=== PATIENT | female | born 1955 | race Caucasian/White ===

== ENCOUNTER 2022-04-22 06:33 | Observation (INO) ==
--- NOTE | 2022-03-26 13:09 | PAT Medication Instructions ---
Medication Instructions Date of Service March 26, 2022 Home Medications acetaminophen 325 mg tablet (Tylenol) 325 mg PO QID PRN ibuprofen 200 mg tablet 200 mg PO Q6H PRN albuterol sulfate 2.5 mg INHALATION QID PRN albuterol sulfate 90 mcg/actuation aerosol inhaler 2 puff INHALATION QID PRN amlodipine 5 mg tablet (Norvasc) 5 mg PO QPM atorvastatin 40 mg tablet 40 mg PO HS benazepril 40 mg tablet 40 mg PO DAILY bevacizumab 1.25 mg/0.05 mL intravitreal syringe 1.25 mg INTRAVITREAL MONTHLY buspirone 5 mg tablet 5 mg PO TID celecoxib 200 mg capsule (Celebrex) 200 mg PO QAM ciclopirox olamine 1 % topical cream 1 applic TOPICAL BID conjugated estrogens 0.625 mg/gram vaginal cream (Premarin) 1 applic VAGINAL QAM dicyclomine 10 mg capsule 10 mg PO QID empagliflozin 25 mg-linagliptin 5 mg tablet (Glyxambi) 1 tab PO QAM ferrous sulfate 325 mg (65 mg iron) tablet (FeroSul) 325 mg PO Q OTHER DAY fluconazole 150 mg tablet (Diflucan) 150 mg PO WK fluticasone fur. 200 mcg-umeclid 62.5 mcg-vilant 25 mcg inhalat.powder (Trelegy Ellipta) 1 inh INHALATION QAM gabapentin 100 mg tablet 200 mg PO TID insulin glargine 100 unit/mL (3 mL) subcutaneous pen (Basaglar KwikPen U-100 Insulin) 70 unit SUBCUT BID ipratropium 0.5 mg-albuterol 3 mg (2.5 mg base)/3 mL nebulization soln 3 ml INHA LATION QID PRN levothyroxine 125 mcg tablet 125 mcg PO QAM lorazepam 0.5 mg tablet 0.5 mg PO Q6H PRN metoprolol succinate 50 mg tablet,extended release 24 hr 50 mg PO QAM montelukast 10 mg tablet (Singulair) 10 mg PO PM multivitamin 2 tab PO QAM omeprazole 40 mg capsule,delayed release 40 mg PO QAM oxybutynin chloride 10 mg tablet,extended release 24 hr 10 mg PO QAM sertraline 100 mg tablet (Zoloft) 200 mg PO QAM Continue as directed fluconazole 150 mg tablet (Diflucan) 150 mg PO WK ASK your surgeon for instructions celecoxib 200 mg capsule (Celebrex) 200 mg PO QAM ibuprofen 200 mg tablet 200 mg PO Q6H PRN ASK your prescriber and surgeon bevacizumab 1.25 mg/0.05 mL intravitreal syringe 1.25 mg INTRAVITREAL MONTHLY STOP taking 24 hours before surgery ciclopirox olamine 1 % topical cream 1 applic TOPICAL BID DO NOT take the morning of surgery benazepril 40 mg tablet 40 mg PO DAILY conjugated estrogens 0.625 mg/gram vaginal cream (Premarin) 1 applic VAGINAL QAM dicyclomine 10 mg capsule 10 mg PO QID empagliflozin 25 mg-linagliptin 5 mg tablet (Glyxambi) 1 tab PO QAM ferrous sulfate 325 mg (65 mg iron) tablet (FeroSul) 325 mg PO Q OTHER DAY multivitamin 2 tab PO QAM oxybutynin chloride 10 mg tablet,extended release 24 hr 10 mg PO QAM Take morning of surgery With a small sip of water, OTHERWISE NOTHING TO EAT OR DRINK AFTER MIDNIGHT: acetaminophen 325 mg tablet (Tylenol) 325 mg PO QID PRN (okay to take up to 4 hours prior to surgery if needed) albuterol sulfate 2.5 mg INHALATION QID PRN (use if needed; please bring rescue inhaler with you to hospital day of surgery if possible) albuterol sulfate 90 mcg/actuation aerosol inhaler 2 puff INHALATION QID PRN (if needed) buspirone 5 mg tablet 5 mg PO TID fluticasone fur. 200 mcg-umeclid 62.5 mcg-vilant 25 mcg inhalat.powder (Trelegy Ellipta) 1 inh INHALATION QAM gabapentin 100 mg tablet 200 mg PO TID ipratropium 0.5 mg-albuterol 3 mg (2.5 mg base)/3 mL nebulization soln 3 ml INHALATION QID PRN (if needed) levothyroxine 125 mcg tablet 125 mcg PO QAM lorazepam 0.5 mg tablet 0.5 mg PO Q6H PRN (if needed) metoprolol succinate 50 mg tablet,extended release 24 hr 50 mg PO QAM omeprazole 40 mg capsule,delayed release 40 mg PO QAM sertraline 100 mg tablet (Zoloft) 200 mg PO QAM Take evening before surgery acetaminophen 325 mg tablet (Tylenol) 325 mg PO QID PRN (if needed) albuterol sulfate 2.5 mg INHALATION QID PRN (if needed) albuterol sulfate 90 mcg/actuation aerosol inhaler 2 puff INHALATION QID PRN (if needed) amlodipine 5 mg tablet (Norvasc) 5 mg PO QPM atorvastatin 40 mg tablet 40 mg PO HS buspirone 5 mg tablet 5 mg PO TID dicyclomine 10 mg capsule 10 mg PO QID gabapentin 100 mg tablet 200 mg PO TID insulin glargine 100 unit/mL (3 mL) subcutaneous pen (Basaglar KwikPen U-100 Insulin) 70 unit SUBCUT BID ipratropium 0.5 mg-albuterol 3 mg (2.5 mg base)/3 mL nebulization soln 3 ml INHALATION QID PRN (if needed) lorazepam 0.5 mg tablet 0.5 mg PO Q6H PRN (if needed) montelukast 10 mg tablet (Singulair) 10 mg PO PM Insulin Dependent Diabetic Patients * Test your blood sugar the morning of surgery * If Blood Sugar is GREATER THAN 150, take HALF of your regular dose of: insulin glargine 100 unit/mL (3 mL) subcutaneous pen (Basaglar KwikPen U-100 Insulin) > take 35 units * If Blood Sugar is LESS THAN 150, DO NOT TAKE ANY: insulin glargine 100 unit/mL (3 mL) subcutaneous pen (Basaglar KwikPen U-100 Insulin) Other Notes If you have any questions please call us at [phone] or [phone] or [phone] or [phone]
--- NOTE | 2022-03-27 12:59 | Anesthesiology Consultation ---
Date of Service March 27, 2022 Assessment & Plan (1) Encounter for pre-operative examination: Chart Review Chart Review: Acceptable Risk for Surgery (pending preop Covid testing results ) and Patient seen in Pre Admission Testing Pt hesitant re: SAB - discussed pros and cons of SAB vs GA- pt will discuss with anesthesiologist DOS -Discussed pulm status with Dr. Berman- pt follows routinely with PCP and sleep medicine. Takes inhalers and nebulizer as prescribed. Uses oxygen PRN with activity- pt 95% oxygen on RA in PAT office. Pt can proceed as scheduled- it was recommended that patient do nebulizer treatment prior to coming to hospital on DOS. - Check BSG AM DOS Per PAT appt on 03/27/22, patient denies any recent travel or large group activities. No known Covid positive exposures or Covid related symptoms. No known Covid infection in the past 90 days. Pt is vaccinated for Covid. Preop Covid testing scheduled 04/18/22 = will await results. Educated on importance of self quarantining, social distancing and wearing mask in public for the patient one week prior to surgery and after Covid testing done Last seen by Sleep Medicine 03/21/22= Seen as telemedicine visit. Hx of COPD, DM, depression/anxiety, HTN, tobacco use and hypothyroidism. Seen for follow up on ZAIRA and nocturnal hypoxemia. Had recent CPAP adjustments with new mask. Continue CPAP every night and for naps. Adjustments made to CPAP. Get DL 3 months after hip replacement to consider repeating overnight oximetry on RA with PAP. Follow up in six moths Pt last seen by PCP 01/02/22= Pt seen for recheck. ZAIRA- on CPAP- not wearing oxygen at night- PCP informing sleep medicine. DM- A1C 7.1. COPD- severe/history of asthma. (Had nighttime oximetry study that did show desaturation- sleep medicine made adjustments to CPAP) Teaching & Discussion Pre-Anesthesia Teaching/Discussion Notes: Instructed NPO after midnight before surgery,except medications with 15 cc of water. Medication instructions provided according to the [facility] guidelines. History Surgery Operation Date: 04/22/22 12:30 Proposed Procedures p Left Total Hip Arthroplasty - Herbert Renner MD Height/Weight Height: 5 ft 8.5 in Weight: 143.8 kg Allergies Allergy/AdvReac Type Severity Reaction Status Date / Time Sulfa (Sulfonamide Allergy Unknown Unknown Verified 03/25/22 15:33 Antibiotics) metformin AdvReac Intermediate Diarrhea Verified 03/26/22 08:24 Medications Home Medications Medication Instructions Recorded Confirmed Last Taken acetaminophen 325 mg tablet 325 mg PO QID PRN 03/25/22 03/26/22 Unknown (Tylenol) ibuprofen 200 mg tablet 200 mg PO Q6H PRN 03/25/22 03/26/22 Unknown albuterol sulfate 2.5 mg INHALATION QID PRN 03/26/22 03/26/22 Unknown albuterol sulfate 90 mcg/actuation 2 puff INHALATION QID PRN 03/26/22 03/26/22 Unknown aerosol inhaler amlodipine 5 mg tablet (Norvasc) 5 mg PO QPM 03/26/22 03/26/22 Unknown atorvastatin 40 mg tablet 40 mg PO HS 03/26/22 03/26/22 Unknown benazepril 40 mg tablet 40 mg PO DAILY 03/26/22 03/26/22 Unknown bevacizumab 1.25 mg/0.05 mL 1.25 mg INTRAVITREAL MONTHLY 03/26/22 03/26/22 Unknown intravitreal syringe buspirone 5 mg tablet 5 mg PO TID 03/26/22 03/26/22 Unknown celecoxib 200 mg capsule (Celebrex) 200 mg PO QAM 03/26/22 03/26/22 Unknown ciclopirox olamine 1 % topical 1 applic TOPICAL BID 03/26/22 03/26/22 Unknown cream conjugated estrogens 0.625 mg/gram 1 applic VAGINAL QAM 03/26/22 03/26/22 Unknown vaginal cream (Premarin) dicyclomine 10 mg capsule 10 mg PO QID 03/26/22 03/26/22 Unknown empagliflozin 25 mg-linagliptin 5 1 tab PO QAM 03/26/22 03/26/22 Unknown mg tablet (Glyxambi) ferrous sulfate 325 mg (65 mg 325 mg PO Q OTHER DAY 03/26/22 03/26/22 Unknown iron) tablet (FeroSul) fluconazole 150 mg tablet 150 mg PO WK 03/26/22 03/26/22 Unknown (Diflucan) fluticasone fur. 200 mcg-umeclid 1 inh INHALATION QAM 03/26/22 03/26/22 Unknown 62.5 mcg-vilant 25 mcg inhalat.powder (Trelegy Ellipta) gabapentin 100 mg tablet 200 mg PO TID 03/26/22 03/26/22 Unknown insulin glargine 100 unit/mL (3 70 unit SUBCUT BID 03/26/22 03/26/22 Unknown mL) subcutaneous pen (Basaglar KwikPen U-100 Insulin) ipratropium 0.5 mg-albuterol 3 mg 3 ml INHALATION QID PRN 03/26/22 03/26/22 Unknown (2.5 mg base)/3 mL nebulization soln levothyroxine 125 mcg tablet 125 mcg PO QAM 03/26/22 03/26/22 Unknown lorazepam 0.5 mg tablet 0.5 mg PO Q6H PRN 03/26/22 03/26/22 Unknown metoprolol succinate 50 mg 50 mg PO QAM 03/26/22 03/26/22 Unknown tablet,extended release 24 hr montelukast 10 mg tablet 10 mg PO PM 03/26/22 03/26/22 Unknown (Singulair) multivitamin 2 tab PO QAM 03/26/22 03/26/22 Unknown omeprazole 40 mg capsule,delayed 40 mg PO QAM 03/26/22 03/26/22 Unknown release oxybutynin chloride 10 mg 10 mg PO QAM 03/26/22 03/26/22 Unknown tablet,extended release 24 hr sertraline 100 mg tablet (Zoloft) 200 mg PO QAM 03/26/22 03/26/22 Unknown Past Medical History Medical History (Updated 03/28/22 @ 09:40 by Migdalia Alvarez PA-C) Anxiety Asthma Well controlled per patient Chronic diastolic CHF (congestive heart failure) Chronic obstructive pulmonary disease Uses inhaler daily - uses 3L oxygen if out walking - uses nebulizer once a day - follows Dr. Cece Abreu (Sleep Medicine) Chronic respiratory failure with hypoxia Depression Diabetes mellitus, type 2 IDDM Glucose stable per patient Diabetic retinopathy Follows eye doctor routinely GERD (gastroesophageal reflux disease) Well controlled and stable Hyperlipidemia Hypertension Hypothyroidism Sleep apnea cpap Spinal stenosis Lumbar area Exercise / Class Metabolic Activity III < 4 Walking/Shop/Light housework (no chest pain or SOB with flat surace, short distance ambulation ) Past Family History Family History Other No pertinent family history Past Surgical History Surgical History History of colonoscopy History of total right hip arthroplasty Hx of arthroscopy of right knee Hx of inguinal hernia surgery Hx of wisdom tooth extraction Past Anesthesia History No Hx of Anesthesia Complications and No Family Hx of Anesthesia Complications History of PONV No Hx of PONV and No Hx of Motion Sickness Social History Smoking Status: Current every day smoker tobacco type: cigarettes Smoking cigarettes per day: 5 cigarettes per day Do You Dip or Chew Tobacco: No Hx Alcohol Use: No Hx Substance Use: No substance use type: does not use Review of Systems Chronic cough- due to asthma and COPD- usually in the morning - stable. Patient denies chest pain, shortness of breath at rest, wheezing, palpitations. No hx of seizures, stroke, CA. No hx of blood clots or blood transfusions Physical Exam Vital Signs VITALS BP 126/83 P 74 TEMP 98.8 SP02 95% on RA RESP 16 Constitutional no acute distress ENMT Mouth: no TMJ clicking Thyromental Distance: > or= 3.5 Finger Breadths (3.5) Mallampati Class: II Missing side teeth and molars Capped to side tooth Neck + limited neck extension (mild) Respiratory normal respiratory effort; no respiratory distress Auscultation: lungs clear to auscultation bilaterally; no wheezes Cardiovascular Rate/Rhythm: regular rate and regular rhythm Heart Sounds: no murmur Vessels: no carotid bruit Heart sounds mildly dimished Musculoskeletal Spine: no pain with cervical ROM Extremities: extremities normal to inspection Psychiatric Orientation: alert Lab Results Anesthesia Preop Results Results Anesthesia Widget: WBC 8.67 K/uL (4.8-10.8) 03/27/22 Hgb 13.9 g/dL (12.0-16.0) 03/27/22 Hct 43.9 % (37-47) 03/27/22 Plt 237 K/uL (130-400) 03/27/22 Na 142 mmol/L (136-145) 03/27/22 K 4.7 mmol/L (3.5-5.1) 03/27/22 Cl 106 mmol/L (98-107) 03/27/22 CO2 30 mmol/L (21-32) 03/27/22 BUN 17 mg/dl (6-23) 03/27/22 Creat 0.86 mg/dl (0.6-1.2) 03/27/22 Glucose Level 130 mg/dl (70-99(Fasting)) H 03/27/22 PT 10.4 Seconds (9.0-12.0) 03/27/22 PTT 25.9 Seconds (21.0-31.0) 03/27/22 INR 1.0 (0.9-1.1) 03/27/22 HA1c 7.1 % (4.5-5.6) H 03/27/22 Blood Type A Positive 03/27/22 Antibody Screen NEGATIVE 03/27/22 Testing Electrocardiogram Date: 03/27/22 Findings: + NSR @ (70bpm ) Normal EKG per cardio. Chest X-Ray Date: 03/27/22 Findings: + NAD Echocardiogram Date: 11/29/20 EF: 55-59% LV Function: normal RWMA: + none Other Findings: + LVH (moderate/concentric ) and + diastolic dysfunction (Grade I ) Aortic valve sclerosis without stenosis. Aortic root is mildly enlarged. Proximal ascending aorta is inadequately visualized
--- NOTE | 2022-04-19 17:05 | History and Physical Report ---
CHIEF COMPLAINT: Left hip pain. HISTORY OF PRESENT ILLNESS: The patient is a 66-year-old female from [place], who presents for martinez rgical treatment of her left hip. She has a 1-2 year history of gradually increasing left hip pain a nd discomfort that resulted in having her to use a cane to get around. She describes groin pain, thi gh pain radiating down to her knee. Denies any real major back pain. She has tried multiple medicin es without any real relief. She uses topical BenGay with Aspercreme with minimal relief. Her walkin g tolerance is 2 blocks at best. She is desiring surgical treatment. She does have history of right hip replacement done in [place] in 2009 at [facility]. PAST MEDICAL HISTORY: 1. Hypertension. 2. Elevated cholesterol. 3. Asthma. 4. COPD. 5. Sleep apnea with CPAP machine. 6. Diabetes. 7. Morbid obesity. 8. Gastroesophageal reflux disease. 9. Back pain. PAST SURGICAL HISTORY: Includes total hip replacement done in [facility] in [place] on 0. ALLERGIES: SULFA. CURRENT MEDICATIONS: Include: 1. Albuterol. 2. Amlodipine. 3. Atorvastatin. 4. Benazepril. 5. Buspirone. 6. Celebrex. 7. Dicyclomine. 8. Estrogen. 9. Iron. 10. Fluticasone. 11. Gabapentin. 12. Levothyroxine. 13. Glyxambi. 14. Lorazepam. 15. Metoprolol. 16. Montelukast. 17. Omeprazole. 18. Oxybutynin. 19. O2 20. Sertraline. 21. Ellipta. SOCIAL HISTORY: A 66-year-old white female. She lives in [place]. She moved there from [facility]. FAMILY HISTORY: Noncontributory. REVIEW OF SYSTEMS: Significant for morbid obesity, BMI 48. No history of DVT or PE. No known bleed ing problems. PHYSICAL EXAMINATION: GENERAL: Shows a pleasant, obese, middle-aged female. HEENT: Benign. NECK: Supple. No lymphadenopathy. LUNGS: Clear to auscultation. HEART: Regular rate and rhythm. ABDOMEN: Soft, nontender, nondistended. EXTREMITIES: Grossly neurovascularly intact except as follows. Examination of the left leg reveals the patient walks with a markedly antalgic gait. She uses a cane . Limps in the left side. The leg lengths are pretty equal. She may be just slightly short on the left side. She has pain with any type of hip motion. Internal rotation to neutral at best. Mild di ffuse edema distally and some mild stasis changes. No skin breakdown. X-RAYS: X-rays of the left hip were reviewed. It shows advanced left hip DJD. She has complete los s of her joint space. She has got a fairly concentric disease. She got cystic change on both sides of the joint. Right hip replacement looks to be in pretty good position, but there is not much motio n of the cuff and they did penetrate the medial wall when placing it. It looks stable. ASSESSMENT: A 66-year-old white female 12 years out from right hip replacement with multiple medical comorbidities including morbid obesity, hypertension, elevated cholesterol, emphysema, chronic obstr uctive pulmonary disease, sleep apnea, diabetes, and reflux disease with advanced left hip degenerati ve joint disease. She has failed conservative treatment and would like to have her left hip replaced . PLAN: We talked about treatment. She is strongly desiring hip replacement surgery. I discussed wit h her the increased risk with her size and obesity and she is fully aware of the risks of infection, blood clots, need for revision surgery, which are higher. Other concerns include but not limited to , infection, neurological injury, vascular injury, bleeding problem, pain, limited range of sara on, stiffness, dislocation, fracture, etc. The patient understands and desires to proceed. Informed consent was obtained. We will likely use a Prevena VAC postoperatively. She will need to hold her metformin on the morning of surgery and take the metoprolol. She will take omeprazole as well. She is planning to be discha rged to home with some home therapy. Job ID: [id number]
[~2022-04-22 06:33] MED LIST: ACETAMINOPHEN 500 MG TAB PO SCH; BUPIVACAINE 0.5 % 5 MG/1 ML PF 10ML VIAL ONE; CeleBREX 200 MG CAP PO SCH; FAMOTIDINE 20 MG TAB PO SCH; LR 500ML BOLUS, THEN 15ML/HR IV SCH; LR 60ML/HR IV SCH; METOCLOPRAMIDE HCL 10 MG TABLET PO SCH; Scopolamine 1 MG TDSY TD SCH; TRANEXAMIC ACID 1,000 MG **IV Pre-op IV SCH
--- NOTE | 2022-04-22 06:57 | History & Physical Bridge Note ---
Date of Service April 22, 2022 History & Physical Bridge Note I have examined the patient, reviewed the History & Physical and in the interval since the performance of the History & Physical I have noted the following changes of clinical significance: no changes noted
[2022-04-22] MEDS ORDERED: MIDAZOLAM HCL 1 MG/ML 2ML VIAL ONE ×2 (07:31)
[2022-04-22] MEDS ORDERED: MoRPHine SULFATE PF 1 MG/ML 10 ML AMP/VIAL ONE (07:31)
[2022-04-22] MEDS ORDERED: ePHEDrine sulfate 50 MG/ML AMP IV PRN ×2 (08:02→09:08)
[2022-04-22] MEDS ORDERED: ONDANSETRON INJ 2 MG/ML 2 ML VIAL IV PRN ×3 (08:02→12:47)
[2022-04-22] MEDS ORDERED: ATROPINE SULFATE 0.1 MG/ML 10ML SYR IV PRN (08:02)
[2022-04-22] MEDS ORDERED: fentaNYL citrate 100 MCG/2 ML VIAL IV PRN (08:02)
[2022-04-22] MEDS ORDERED: MEPERIDINE HCL 25 MG/ML CARP/VIAL IV PRN (09:08)
[2022-04-22] MEDS ORDERED: LACTATED RINGER'S 500 ML IV PRN (09:08)
[2022-04-22] MEDS ORDERED: diphenhydrAMINE 50 MG/ML VIAL IV PRN (09:08)
[2022-04-22] MEDS ORDERED: HYDROmorphone INJ 0.5 MG/0.5 ML SYR IV PRN (09:08)
[2022-04-22] MEDS ORDERED: MoRPHine SULFATE 2 MG/ML CARP IV PRN (09:08)
[2022-04-22] MEDS ORDERED: NALOXONE HCL 0.4 MG/1 ML VIAL/CARP IV PRN ×2 (09:08→12:47)
[2022-04-22] MEDS ORDERED: NALBUPHINE HCL INJ 10 MG/ML AMP IV PRN (09:08)
[2022-04-22] MEDS ORDERED: NALOXONE HCL 1 MG in SODIUM CHLORIDE 0.9% 1000ML 1,000 ML IV PRN (09:08)
[2022-04-22] MEDS ORDERED: NALOXONE HCL 0.08 MG in SYRINGE 1.8 ML IV PRN (09:08)
[2022-04-22] MEDS ORDERED: MoRPHine SULFATE PF 1 MG/ML 10 ML AMP/VIAL INT SPINAL ONE (09:08)
[2022-04-22] MEDS ORDERED: NO NARCOTICS OR SEDATIVES SCH (09:15)
[2022-04-22] MEDS ORDERED: SODIUM CHLORIDE 0.9% 1000ML 1,000 ML IV SCH (09:15)
[2022-04-22] MEDS ORDERED: EPINEPHrine INJ 1 MG/ML AMP ONE (09:16)
[2022-04-22] MEDS ORDERED: BUPIVACAINE 0.5 % 5 MG/1 ML MPF 30ML VIAL ONE (09:17)
[2022-04-22] MEDS ORDERED: KETAMINE 50 MG/5 ML SYRINGE ONE (09:43)
[2022-04-22] MEDS ORDERED: PROPOFOL IV EMULSION 10 MG/ML 20 ML VIAL IV ONE ×2 (09:44→10:38)
[2022-04-22] MEDS ORDERED: GLYCOPYRROLATE 0.2 MG/ML VIAL ONE (09:49)
[2022-04-22] MEDS ORDERED: ONDANSETRON INJ 2 MG/ML 2 ML VIAL ONE (09:49)
[2022-04-22] MEDS ORDERED: KETOROLAC TROMETHAMINE 15 MG/ML VIAL IV PRN (11:00)
--- NOTE | 2022-04-22 11:38 | Operative Report ---
PG Post Operative Report Pre & Post Diagnosis Operation Date: 04/22/22 08:50 Pre-Op Diagnosis: Left Hip Advanced Degenerative Joint Disease Post-Op Diagnosis: Left Hip Advanced Degenerative Joint Disease I identified the patient and participated in the time-out.: Yes Procedure Operation Date: 04/22/22 08:50 Actual Procedures p Left Total Hip Arthroplasty--Uncemented(Left) - Herbert Renner MD Surgeon Herbert Renner MD Industrial Safety Engineer Chidi Tapia PA-C Estimated Blood Loss 200 Findings Consistent with Post-Op Diagnosis Operative findings revealed advanced left hip DJD with grade 4 [id number] disease of the femoral head and acetabulum. She remarks a joint effusion. Fairly large anterior acetabular osteophytes. Fluids 1700 cc Specimens Left femoral head sent for pathology Drains None Anesthesia Type Spinal MAC Complications none Disposition Accompanied Patient To Recovery: Yes Indications Patient is a 66-year-old female whose had a several year history of gradually progressive increased left hip pain discomfort which became more disabling over time. She had a right hip replaced about 10 years ago in [place]. She failed all conservative measures. X-rays show advanced left hip arthritis. She elected proceed with surgical management. Description of Procedure Operative implants consist of: The 1 Biomet G7 size 52 mm acetabular shell. 2. 6.5 cancellous acetabular screws 135 mm length 1 to 20 mm length. 3. [place] hole automotive generator repairer. 4. Highly cross-linked polyethylene liner with a 52 mm outer diameter, 36 mm inner diameter with a schmidt placed inferior and posterior. 5. DePuy Karaya size 11 KLA femoral stem. 6. +5/36 mm ceramic articular ball. The patient was taken the operating, identified, and placed on the operating table supine position protectors were properly padded. IV antibiotics tried by anesthesia team. A spinal anesthetic had been implemented holding area. Jasmine catheter was placed in sterile fashion. The patient was then placed in the right lateral decubitus position. Axillary roll was placed. Stulberg hip posit ioner was used for positioning. Left hip and leg were then prepped and draped in usual sterile fashion. A posterior lateral approach of the left hip was then performed through a curvilinear incision centered over the greater trochanter. Sharp dissection was carried through subcutaneous tissue down to level the IT band gluteal fascia. The subcutaneous tissue layer was quite thick. The IT band gluteal fascia incised longitudinally in line with skin incision. The underlying greater bursa was excised. The piriformis and external rotators were taken off the posterior aspect hip joint along with the posterior capsule as a single layer. Great care was taken throughout the procedure protect the sciatic nerve at all times. Hip was internally rotated and dislocated. A femoral neck osteotomy cut was made with Final Cut about 5 mm above the lesser trochanter. Femoral head was removed and sent for pathology. The femur was retracted anteriorly. Attention drawn the acetabulum. The acetabular labrum was excised. Pulmonary fat was excised. Sequential reaming the acetabular was then performed begin with a size 43 and progressing up to 51. We reamed a little bit with a 52 reamer and then placed a 52 mm Biomet G7 acetabular shell in about 40 degrees lateral opening and 20 degrees of anteversion. It was fixed with two 6.5 cancellous acetabular screws. Some large anterior osteophytes removed. A trial liner was placed. Attention drawn the femur. The proximal femur was entered with a [employer] cutter followed by canal finder. I then broached begin the size 8 and and progressing up to 11. Got excellent fit 11. We then trialed the hip and the +5 articular ball recreated soft tissue tension appropriately and was fully stable. I did elect to place a schmidt in the acetabular liner in order to maximize her stability in flexion with due to her obesity. We elect to place these implants. All trial implants were removed. An apex hole automotive generator repairer was placed. Highly cross-linked polyethylene liner was placed. The schmidt was placed inferior and posterior. A DePuy size 11 KLA femoral stem was impacted in position. +5/36 mm ceramic articular ball was placed. Hip was located once again found to be stable. Attention drawn toward closing. The wounds irrigated scope soft pulsatile lavage solution. I did inject locally with 60 cc of absent Marcaine with epinephrine. Posterior capsule and external rotators were repaired through drill holes in the posterior trochanter as a single layer with #2 Tycron suture. The IT band gluteal fascia then closed in 1 PDS suture in running fashion for subcutaneous tissues then closed with 3 layers with a deep layer #2 Vicryl suture, the middle layer #1 Vicryl suture, and the subcutaneous tissues with 2-0 Dexon suture in a buried interrupted fashion. Skin was closed skin yesy. Leg was then cleaned and dried. A Prevena VAC dressing was applied due to her very large soft tissue envelope. Patient then transferred to the recovery room in stable condition. Patient tolerated procedure well and there were no complications. Chidi Tapia, my physician human resources executive assistant, was present for the entire procedure. His assistance was essential and required for appropriate patient positioning, prepping and draping, surgical exposure, performing the technical details of the operation, placement the implants, closure of the wound, and placement of the sterile bandage. I attest to the content of the Intraoperative Record and any orders documented therein. Any exceptions are noted below.
--- NOTE | 2022-04-22 12:29 | XRay Report ---
SINGLE VIEW PELVIS; SINGLE VIEW LEFT HIP CLINICAL HISTORY: Postoperative examination. FINDINGS: 2 AP portable view of the hips and pelvis with a crosstable lateral portable view of the le ft hip are obtained. Comparison is made to study dated 03/20/2022. A bipolar left hip arthroplasty is in near-anatomic alignment. At least 2 cortical lag screws transfix the acetabular cup. No acute frac ture is identified. There are expected postoperative changes overlying the left hip including skin cl ips, subcutaneous gas, a surgical drain, and soft tissue swelling. A right hip arthroplasty is in yessenia r-anatomic alignment. IMPRESSION: Expected postoperative findings status post left hip arthroplasty. No acute fracture is s een. ACT 112: Negative or not required by law. Electronically signed by: Red Rivas M.D. 04/22/2022 12:28 PM
[2022-04-22] MEDS ORDERED: METOCLOPRAMIDE HCL INJ 5 MG/ML 2 ML VIAL IV PRN (12:47)
[2022-04-22] MEDS ORDERED: ALBUTEROL 0.083% NEBU SOLN 3 ML VIAL INH PRN (12:47)
[2022-04-22] MEDS ORDERED: ALUMINUM/MAGNESIUM SUSP 30 ML UDC PO PRN (12:47)
[2022-04-22] MEDS ORDERED: MAGNESIUM HYDROXIDE SUSP 30 ML UDC PO PRN (12:47)
[2022-04-22] MEDS ORDERED: ALBUT/IPRATROP 3MG/0.5MG NEB 3 ML VIAL INH PRN (12:47)
[2022-04-22] MEDS ORDERED: PHARMACY GLYCEMIC MGMT CONSULT PRN (12:47)
[2022-04-22] MEDS ORDERED: ALBUTEROL HFA 8 GM INHALER INH PRN (12:47)
[2022-04-22] MEDS ORDERED: BEVACIZUMAB INT VIT SCH (12:47)
[2022-04-22] MEDS ORDERED: bisacodyL 10 MG SUPP PR PRN (12:47)
[2022-04-22] MEDS ORDERED: DEXTROSE 50% 50 ML SYRINGE IV PRN (13:30)
[2022-04-22] MEDS ORDERED: GLUCOSE 40% GEL 15 GM TUBE PO PRN (13:30)
[2022-04-22] MEDS ORDERED: GLUCOSE 10 TAB/TUBE PO PRN (13:30)
[2022-04-22] MEDS ORDERED: GLUCAGON FOR INJ 1 MG VIAL IM PRN (13:30)
[2022-04-22] MEDS ORDERED: CARBOHYDRATES FOR HYPOGLYCEMIA PO PRN (13:30)
--- NOTE | 2022-04-22 13:36 | Pharmacy Report ---
Pharmacy Glycemic Short Note 2 - Date of Service April 22, 2022 - Glycemic Short BSG Results (Last 24 hours): 04/22/22 04/22/22 06:59 11:28 POC Glucose 82 94 OUTPATIENT ANTIDIABETIC REGIMEN: * Basaglar 70 units BID; empagliflozin+linagliptin 1 tab qAM * A1c 7.1% 03/27/22 ASSESSMENT: * Patient admitted POD#3 left hip arthroplasty. T2DM diet ordered * BSGs 82-94 mg/dL with administration of home Basaglar this morning. * Will adjust insulin to be 50:50 ratio with basal/bolus based on total home insulin use and start lantus 25 mg BID and CF/CR of 15/5. Hold home oral medications (this is similar to weight based stress of 2). Will monitor for increase in BSG and need to titrate up. PLAN FOR INPATIENT GLYCEMIC CONTROL: * Hold outpatient oral diabetes medications * Basal insulin * Lantus 25 units SQ BID * Bolus insulin * NovoLog per scale ACHS or Q6hrs while NPO * Goal Range: Low 110 mg/dL - High 140 mg/dL * Correction Factor: 15 mg/dL/unit * Nutritional / Prandial insulin per carb ratio of 1 unit per 5 grams CHO consumed
[2022-04-22] MEDS: SODIUM CHLORIDE 0.9% 1000ML 1,000 ML IV SCH ×2 (13:42→21:19)
[2022-04-22] MEDS: ACETAMINOPHEN 500 MG TAB PO SCH ×2 (14:16→21:24)
[2022-04-22] MEDS: busPIRone 5 MG TAB PO SCH ×2 (14:17→20:55)
[2022-04-22] MEDS: DICYCLOMINE HCL 10 MG CAP PO SCH ×3 (14:17→20:53)
[2022-04-22] MEDS: GABAPENTIN 100 MG CAP PO SCH ×2 (14:18→20:53)
--- NOTE | 2022-04-22 15:30 | Anesthesiology Progress Note ---
Date of Service April 22, 2022 Anesthesia Post Procedure Vital Signs Vital Signs: Temp Pulse Pulse Resp BP Pulse Ox O2 Del Method 04/22/22 14:47 36.3 C L 59 L 18 97/60 L 96 Room Air 04/22/22 13:35 36.3 C L 54 L 18 114/73 100 Nasal Cannula 04/22/22 13:13 Nasal Cannula 04/22/22 13:10 36.3 C L 57 L 16 111/74 100 Nasal Cannula 04/22/22 12:40 36.3 C L 63 18 104/64 97 Nasal Cannula 04/22/22 11:55 36.2 C L 69 20 109/59 L 90 Room Air 04/22/22 11:45 70 17 108/57 L 99 Oxymask 04/22/22 11:35 73 16 104/52 L 99 Oxymask 04/22/22 12:15 64 15 105/56 L 97 Nasal Cannula 04/22/22 12:05 65 12 99/60 L 97 Nasal Cannula 04/22/22 11:25 36.6 C 81 16 103/54 L 97 Oxymask 04/22/22 07:08 36.7 C 66 20 155/86 H 95 Room Air, CPAP 04/22/22 07:08 Room Air, CPAP O2 Flow Rate 04/22/22 14:47 04/22/22 13:35 2 04/22/22 13:13 2 04/22/22 13:10 2 04/22/22 12:40 2 04/22/22 11:55 04/22/22 11:45 2 04/22/22 11:35 6 04/22/22 12:15 2 04/22/22 12:05 2 04/22/22 11:25 6 04/22/22 07:08 04/22/22 07:08 Pain Intensity Left Hip: Pain Intensity: 5 Transfer of Care Handoff Completed per policy Notes Mental Status: alert / awake / arousable Patient Amnestic to Procedure: Yes Nausea / Vomiting: adequately controlled Pain: adequately controlled Airway Patency, RR, SpO2: stable & adequate BP & HR: stable & adequate Hydration State: stable & adequate Neuraxial Anesthesia: was administered and sensory block is resolving Anesthetic Complications: no major complications apparent and Pt Satisfied with anesthetic care
[2022-04-22] MEDS: Scopolamine CHECK PATCH PLACEMENT SCH (15:36)
[2022-04-22] MEDS ORDERED: TRANEXAMIC ACID / 0.7% NACL 1,000 MG/100 ML BAG IV SCH (17:30)
[2022-04-22] MEDS: INSULIN ASPART PER UNIT SC SCH ×2 (17:39→21:05)
--- NOTE | 2022-04-22 17:56 | Progress Notes ---
DATE OF SERVICE: 04/22/2022. SUBJECTIVE: A 66-year-old white female, postoperative from a left hip replacement. She is doing wel l. Really not having much pain. No chest pain or shortness of breath. Not feeling dizzy or lighthe aded. OBJECTIVE: VITAL SIGNS: Temperature is 36.5. Vital signs are stable. GENERAL: Physical exam shows a morbidly obese female. Sitting up on her bedside chair, eating dinne r. Looks comfortable. LUNGS: Clear to auscultation. HEART: Regular rate and rhythm. ABDOMEN: Soft, nontender, nondistended. EXTREMITIES: Grossly neurovascularly intact except as follows. Examination of the left hip and leg reveals the leg lengths to be equal. Her Prevena VAC dressings i n place. Thigh is soft and supple. Hip is located. She is neurologically intact. X-RAYS: X-rays of the left hip from recovery room are reviewed. It shows left uncemented hip replac ement. Components looked to be in good position. The one acetabular screw does penetrate the pelvis slightly, but very slightly and likely in the iliacus muscle. ASSESSMENT: A 66-year-old white female postop from a left hip replacement, doing well. Pain is cont rolled. Hip is located. She is neurologically intact. Components looked to be in good position. T steve one screw does penetrate the pelvis slightly, but should not be an issue. PLAN: 1. DVT prophylaxis includes thigh-high TEDs, SCDs, and aspirin twice a day. 2. PT, OT, weightbear as tolerated. Left total hip protocol. 3. Pain control, doing okay with current pain regimen. 4. IV antibiotics x24 hours. 5. Disposition: Plan to discharge to home with some home health once adequately recovered and medic ally stable. Job ID: [id number]
[2022-04-22] MEDS: ASCORBIC ACID 500 MG TAB PO SCH (17:57)
[2022-04-22] MEDS: ceFAZolin 2000MG 2,000 MG/15 ML SYR IV SCH (18:12)
[2022-04-22] MEDS: KETOROLAC TROMETHAMINE 15 MG/ML VIAL IV SCH (18:13)
[2022-04-22] MEDS: DOCUSATE SODIUM 100 MG CAP PO SCH (20:53)
[2022-04-22] MEDS: ASPIRIN 81 MG ECTAB PO SCH (20:55)
[2022-04-22] MEDS ORDERED: SENNA 8.6 MG TAB PO SCH (21:00)
[2022-04-22] MEDS ORDERED: NON-FORMULARY MEDICATION (Insulin Glargine [Basaglar Kwikpen U-100 Insulin] 100 unit/mL (3 SQ SCH (21:00)
[2022-04-22] MEDS ORDERED: CICLOPIROX OLAMINE TOP SCH (21:00)
[2022-04-22] MEDS ORDERED: amLODIPine BESYLATE 5 MG TAB PO SCH (21:00)
[2022-04-22] MEDS ORDERED: MONTELUKAST SODIUM 10 MG TABLET PO SCH (21:00)
[2022-04-22] MEDS ORDERED: ATORVASTATIN 40 MG TAB PO SCH (21:00)
[2022-04-22] MEDS: LANTUS PER UNIT CHARGE SQ SCH (21:05)
[2022-04-23] MEDS: Scopolamine CHECK PATCH PLACEMENT SCH ×2 (00:30→07:51)
[2022-04-23] MEDS: KETOROLAC TROMETHAMINE 15 MG/ML VIAL IV SCH ×3 (01:08→12:47)
[2022-04-23] MEDS: ceFAZolin 2000MG 2,000 MG/15 ML SYR IV SCH (02:00)
[2022-04-23] MEDS: SODIUM CHLORIDE 0.9% 1000ML 1,000 ML IV SCH (05:11)
[2022-04-23] MEDS: ACETAMINOPHEN 500 MG TAB PO SCH ×2 (05:46→14:06)
[2022-04-23 06:14] LABS: Basophils # (auto) 0.03 K/uL (0-0.2); Basophils % (auto) 0.3 %; Eosinophils # (auto) 0.21 K/uL (0-0.50); Eosinophils % (auto) 2.3 %; Hematocrit (blood only) 35.7 % (34.1-44.9); Hemoglobin 11.2 g/dl (12.0-16.0); Immature Granulocytes # (auto) 0.03 K/uL (0.00-0.02); Immature Granulocytes % (auto) 0.3 %; Lymphocytes # (auto) 1.48 K/uL (1.2-3.4); Lymphocytes % (auto) 16.2 %; Mean Corpuscular Hemoglobin 26.6 pg (25.0-34.0); Mean Corpuscular Hgb Conc 31.4 g/dL (32.0-36.0); Mean Corpuscular Volume 84.8 fL (80.0-100.0); Mean Platelet Volume 10.9 fL (9.4-12.3); Monocytes # (auto) 0.87 K/uL (0.24-0.82); Monocytes % (auto) 9.5 %; Neutrophils # (auto) 6.53 K/uL (1.4-6.5); Neutrophils % (auto) 71.4 %; Platelet Count 148 K/uL (130-400); RDW Coefficient of Variation 16.9 % (11.5-14.5); RDW Standard Deviation 52.4 fL (36.4-46.3); Red Blood Count 4.21 M/uL (3.93-5.22); White Blood Count 9.15 K/ul (4.8-10.8)
[2022-04-23] MEDS ORDERED: LEVOTHYROXINE SODIUM 125 MCG TABLET PO SCH (06:30)
[2022-04-23 06:37] LABS: BUN Creatinine Ratio 21.4 (10-20); Calcium 7.6 mg/dl (8.5-10.1); Creatinine Clr Calc Pharmacy 76.3 ml/min; Est GFR (African American) 59.3 ml/min; Est GFR (Non-African American) 51.1 ml/min; Potassium 3.9 mmol/L (3.5-5.1)
[2022-04-23] MEDS: DOCUSATE SODIUM 100 MG CAP PO SCH (07:49)
[2022-04-23] MEDS: GABAPENTIN 100 MG CAP PO SCH ×2 (07:49→14:05)
[2022-04-23] MEDS: ASPIRIN 81 MG ECTAB PO SCH (07:49)
[2022-04-23] MEDS: DICYCLOMINE HCL 10 MG CAP PO SCH ×2 (07:49→14:06)
[2022-04-23] MEDS: ASCORBIC ACID 500 MG TAB PO SCH (07:50)
[2022-04-23] MEDS: busPIRone 5 MG TAB PO SCH ×2 (07:50→14:06)
[2022-04-23] MEDS: LANTUS PER UNIT CHARGE SQ SCH (08:44)
[2022-04-23] MEDS: INSULIN ASPART PER UNIT SC SCH ×2 (08:44→12:45)
[2022-04-23] MEDS ORDERED: NON-FORMULARY MEDICATION (Empagliflozin-Linagliptin [Glyxambi] 25-5 mg Tablet) PO SCH (09:00)
[2022-04-23] MEDS ORDERED: OXYBUTYNIN CHLORIDE XL 5 MG TABCR PO SCH (09:00)
[2022-04-23] MEDS ORDERED: METOPROLOL SUCC 50MG EXT REL TAB PO SCH (09:00)
[2022-04-23] MEDS ORDERED: PANTOprazole 40 MG TAB PO SCH (09:00)
[2022-04-23] MEDS ORDERED: DOCUSATE SODIUM/SENNA 50/8.6MG TAB PO SCH (09:00)
[2022-04-23] MEDS ORDERED: FERROUS SULFATE 325 MG TAB PO SCH (09:00)
[2022-04-23] MEDS ORDERED: MULTIVITAMIN TAB PO SCH (09:00)
[2022-04-23] MEDS ORDERED: UMECLIDINIUM/VILANTEROL 62.5/25MCG 7 PUFFS/INHALER INH SCH (09:00)
[2022-04-23] MEDS ORDERED: SERTRALINE HCL 100 MG TABLET PO SCH (09:00)
[2022-04-23] MEDS ORDERED: FLUTICASONE FUROATE 200MCG 14 PUFFS/INHALER INH SCH (09:00)
[2022-04-23] MEDS ORDERED: NON-FORMULARY MEDICATION (Multivitamin Tablet) PO SCH (09:00)
[2022-04-23] MEDS ORDERED: DC INTRASPINAL MORPHINE SCH (09:14)
[2022-04-23] MEDS ORDERED: LORazepam 0.5 MG TAB PO PRN (09:15)
[2022-04-23] MEDS ORDERED: traMADol HCL 50 MG TABLET PO PRN (09:15)
[2022-04-23] MEDS ORDERED: HYDROmorphone INJ 0.5 MG/0.5 ML SYR IV PRN (09:15)
[2022-04-23] MEDS ORDERED: ENALAPRIL MALEATE 10 MG TAB PO SCH (14:00)
--- NOTE | 2022-04-23 14:39 | Pharmacy Report ---
Pharmacy Glycemic Short Note 2 - Date of Service April 23, 2022 - Glycemic Short BSG Results (Last 24 hours): 04/22/22 04/22/22 04/23/22 17:17 20:30 06:00 Glucose 86 POC Glucose 139 H 124 H 04/23/22 04/23/22 08:15 11:57 Glucose POC Glucose 82 163 H OUTPATIENT ANTIDIABETIC REGIMEN: * Basaglar 70 units BID; empagliflozin+linagliptin 1 tab qAM * A1c 7.1% 03/27/22 ASSESSMENT: 04/23 * Fasting this AM 82 mg/dL- this would be with ~95 units of basal on board as patient took home 70 unit dose, therefore will slightly increase scale for PM * Continue current novolog parameters, lunch BSG 163 mg/dL 04/22 * Patient admitted POD#3 left hip arthroplasty. T2DM diet ordered * BSGs 82-94 mg/dL with administration of home Basaglar this morning. * Will adjust insulin to be 50:50 ratio with basal/bolus based on total home insulin use and start lantus 25 mg BID and CF/CR of 15/5. Hold home oral medications (this is similar to weight based stress of 2). Will monitor for increase in BSG and need to titrate up. PLAN FOR INPATIENT GLYCEMIC CONTROL: * Hold outpatient oral diabetes medications * Basal insulin * Lantus 25 units SQ this AM, 25-35 HS * Bolus insulin * NovoLog per scale ACHS or Q6hrs while NPO * Goal Range: Low 110 mg/dL - High 140 mg/dL * Correction Factor: 15 mg/dL/unit * Nutritional / Prandial insulin per carb ratio of 1 unit per 5 grams CHO consumed
--- NOTE | 2022-04-23 14:42 | Progress Notes ---
DATE OF SERVICE: 04/23/2022. SUBJECTIVE: A 66-year-old white female postoperative day 1 from a left hip replacement. She is doin g pretty well. States she is having pain, but getting around pretty well. She has decided to go to rehab. OBJECTIVE: VITAL SIGNS: Temperature 36.8. Vital signs are stable. PHYSICAL EXAMINATION: GENERAL: Shows a pleasant middle-aged female. She is lying in bed, looks comfortable. EXTREMITIES: Examination of the left hip reveals her leg lengths to be equal. The Prevena VAC dress ing is clean, dry and in place. No signs of problems. Thigh is soft and supple. She is neurologica lly intact. LABORATORY DATA: Hemoglobin 11.2. Hematocrit 35.7. Electrolytes are stable. ASSESSMENT: A 66-year-old white female, postoperative day 1 from left hip replacement, doing reasona dina well. Pain is controlled. Hip is located. She is neurologically intact. PLAN: 1. DVT prophylaxis includes thigh-high TEDs, SCDs, and aspirin twice a day. 2. PT, OT, weightbear as tolerated. Left total hip protocol. 3. Pain control, doing okay with current pain regimen. 4. Disposition: Plan to discharge to [facility] later today if a bed is available. Job ID: [id number]
[2022-04-23] MEDS ORDERED: LANTUS PER UNIT CHARGE SQ SCH (21:00)
== END 2022-04-23 15:55 ==
LOC: 3E 06:33 → ASU 06:33